=== PATIENT | female | born 1990 | race Two or more races ===

== ENCOUNTER 2017-11-01 18:56 | Emergency (ER) | payer MEDICAID ==
[~2017-11-01] VITALS: Ht 30.5 cm; Wt 0.5 kg
[~2017-11-01 18:56] MED LIST: PREN27TA7
[2017-11-01] MEDS ORDERED: IBUPROFEN 600 MG TAB PO ONE ×2 (19:39→20:15)
[2017-11-01 21:09] VITALS: BP 122/80
[2017-11-01] MEDS ORDERED: ceFAZolin 1GM/50ML 50 ML IV ONE (21:45)
[2017-11-01] MEDS ORDERED: SODIUM CHLORIDE 0.9% 1,000 ML IV ONE (21:45)
[2017-11-01] MEDS ORDERED: ONDANSETRON HCL 4 MG/2 ML VIAL IV ONE (21:45)
[2017-11-01] MEDS ORDERED: cefTRIAXone 1GM/10ml IVPUSH 10 ML IV ONE (21:45)
[2017-11-01] MEDS ORDERED: MEPERIDINE HCL (25 MG/ML) 1ML VIAL IV ONE (21:45)
[2017-11-01] MEDS ORDERED: DEXAMETHASONE SOD PHOS 10MG/1ML VIAL INJ IV ONE (21:45)
[2017-11-01] MEDS ORDERED: DEXAMETHASONE SOD PHOS 10MG/1ML VIAL INJ ONE (22:22)
== END 2017-11-01 23:47 | disposition home or self-care (01) ==
LOC: ER 18:56
DX: J02.0 Streptococcal pharyngitis (principal)
CPT/HCPCS: 96365; 96375; 99284; J0690; J1100; J2175; J2405